=== PATIENT | male | born 1955 | race Two or more races ===

== ENCOUNTER 2024-07-25 17:50 | Emergency (ER) | payer OTHER ==
[~2024-07-25] VITALS: Ht 30.5 cm; Wt 95.0 kg
[2024-07-25 18:25] LABS: Basophils # (auto) 0.1 10 ^3/uL (0-0.2); Basophils % (auto) 0.7 % (0.0-2.0); Eosinophils # (auto) 0.2 10 ^3/uL (0-0.8); Eosinophils % (auto) 1.7 % (0.0-7.0); Hemoglobin 15.6 g/dL (13.5-17.5); Lymphocytes # (auto) 3.4 10 ^3/uL (0.4-5.4); Lymphocytes % (auto) 31.7 % (10.0-50.0); Mean Corpuscular Hemoglobin 28.9 pg (28.0-32.0); Mean Corpuscular Hgb Conc. 33.9 g/dL (32.0-36.0); Mean Corpuscular Volume 85.1 fL (80.0-100.0); Monocytes # (auto) 0.1 10 ^3/uL (0-1.3); Monocytes % (auto) 1.2 % (0.0-12.0); Neutrophils % (auto) 64.7 % (37.0-80.0); Nucleated Red Blood Cells % 0.1 %; Platelet Count (auto) 249 10^3/uL (140-450); Red Cell Distribution Width 13.3 % (11.8-14.3); White Blood Cell 10.8 10^3/uL (4.4-10.8)
[2024-07-25] MEDS: NITROGLYCERIN 0.4 MG SL TAB SL ONE (18:32)
[2024-07-25 18:42] LABS: Alanine Aminotransferase 137 U/L (7-40); Albumin 4.5 g/dL (3.2-4.8); Alkaline Phosphatase 170 U/L (46-116); Anion Gap 8 (5-15); Aspartate Aminotransferase 256 U/L (13-40); BUN/Creatinine Ratio 24.4 (10.0-20.0); Blood Urea Nitrogen 21 mg/dL (9-23); Calcium 10.1 mg/dL (8.7-10.4); Carbon Dioxide 29 mmol/L (20-31); Chloride 101 mmol/L (98-107); Glucose 343 mg/dL (74-106); Potassium 4.2 mmol/L (3.5-5.1); Sodium 138 mmol/L (136-145)
[2024-07-25 18:43] LABS: Bilirubin, Total 1.1 mg/dL (0.2-1.0); Total Protein 7.4 g/dL (5.7-8.2)
[2024-07-25 18:48] VITALS: PULSE 68; RESP 12; O2SAT 95
[2024-07-25 19:24] VITALS: PULSE 74; RESP 12; O2SAT 94
[2024-07-25 19:44] VITALS: TEMP 98.3
[2024-07-25 22:00] VITALS: BP 139/59; PULSE 80; RESP 18; O2SAT 95
[2024-07-25] MEDS: HYDROcodone-ACET 10/325MG TAB PO ONE (23:16)
[2024-07-25] MEDS ORDERED: [UNRECOGNIZED DRUG - CODE] GT (23:27)
[2024-07-25] MEDS ORDERED: OXY5T GT ×2 (23:28→23:29)
== END 2024-07-25 23:42 | disposition home or self-care (01) ==
LOC: ER 17:50
DX: K76.0 Fatty (change of) liver, not elsewhere classified (principal); K08.0 Exfoliation of teeth due to systemic causes; E11.65 Type 2 diabetes mellitus with hyperglycemia; R74.01 Elevation of levels of liver transaminase levels; E78.5 Hyperlipidemia, unspecified; I10 Essential (primary) hypertension
CPT/HCPCS: 36415; 71045; 74176; 80053; 84484; 85025; 93005